=== PATIENT | male | born 1950 | race Caucasian/White ===

== ENCOUNTER → 2020-03-21 | Outpatient (CLI) | payer OTHER ==
[~2020-03-21] MED LIST: CEPH500 PO; RXHYDACE PO; SULTRIDS PO
== END ==
LOC: LAB SHORT 12:05 → PLD 12:05
DX: D04.62 Carcinoma in situ of skin of left upper limb, including shoulder (principal); L30.8 Other specified dermatitis; L57.0 Actinic keratosis
CPT/HCPCS: 88312